=== PATIENT | female | born 2005 | race African-American/Black ===

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

== ENCOUNTER 2024-02-05 14:58 | Emergency (ER) | payer SELFPAY ==
--- OUTSIDE RECORDS SUMMARY | 2024-02-05 15:01 | XMS REPORT | Continuity of Care Document ---
Author Name Unknown Address [address] [place] [address] [facility] Address [address] [place] [address] Care Team Providers Care Encoding Clerk Name Role Phone ALEJA TAYLOR Primary Care Physician Siri KERRI Cabrera Attending Clinician Unavailable UNKNOWN, ATTENDING Attending Clinician Unavailab le [email or web address] Attending Clinician Unavaila cole Leblanc RN, Daily Ohara Attending Clinician Unavailab le Only, Ang Db Test Attending Clinician UnavailGagan Flores Attending Clinician [phone] GAGAN CORTEZ Attending Clinician Unavailable Doctor Unassigned, [place] Attending Clinician U ADILSON Garcia Attending Clinician Unavailable [email or web address] Admitting Clinician Carmitaa cole Payers Payer Name Policy Type Policy Number Effective Date Expirati on Date Source Problems Condition Name Condition Details Condition Category Status Onset Date Resolution Date Last Treatment Date Treating Clinician Comments Source No known active problems No known active problems Disease [facility] Allergies, Adverse Reactions, Alerts Allergy Name Allergy Type Status Severity Reaction(s) Onset Date Inactive Date Treating Clinician Comments Source NO KNOWN ALLERGIE S Drug Class Active [facility] Social History Social Habit Start Date Stop Date Quantity Comments Source History SDOH Alcohol Std Drinks [facility] History SDOH Alcohol Binge [facility] History SDOH Alcohol Comment [facility] Exposure to SARS-CoV-2 (event) Unable to assess [facility] Alcohol intake 2020-04-09 00:00:00 2020-04-09 00:00:00 Lifetime non-drinker (finding) [facility] Tobacco use and exposure 2019-07-12 00:00:00 2019-07-12 00:00:00 Never used [facility] History SDOH Alcohol Frequency 2019-07-12 00:00:00 2019-07-12 00:00:00 1 [facility] Sex Assigned At 2005 00:00:00 2005 00:00:00 [facility] Smoking Status Start Date Stop Date Source Never smoker [facility] Medications Ordered Medication Name Filled Medication Name Start Date Stop Date Current Medication? Ordering Clinician Indication Dosage Frequency Signature (SIG) Comments Components Source lisdexamfet amine (VYVANSE) 40 mg capsule 2019-05 14:18: 21 Yes 40mg Take 40 mg by mouth every morning. [facility] Multivitami ns with Fluoride (MULTI-KOREY MIN ORAL) 2019-05 14:18: 21 Yes 1{tbl} Take 1 tablet by mouth. [facility] Encounters Start Date/Time End Date/Time Encounter Type Admission Type Attending Clinicians Care Facility Care Department Encounter ID Source 2023-09-15 08:30:00 2023-09-15 08:30:00 Outpatient R KERRI BLACK [facility] [id number] [facility] 2023-04-22 17:40:00 2023-04-22 17:40:00 Outpatient R UNKNOWN, ATTENDING [facility] [id number] [facility] 2023-03-24 00:00:00 2023-03-24 00:00:00 Outpatient [email or web address] [facility] [id number] [facility] 2021-05-27 00:00:00 2021-05-27 00:00:00 Letter (Out) Daily Leblanc [facility] [id number] [facility] 2021-05-25 18:15:00 2021-05-25 18:30:00 Laboratory Only Only, Ang Db Test Gagan Cortez [facility] [id number] [facility] 2021-05-25 18:15:00 2021-05-25 18:15:00 Outpatient R GAGAN CORTEZ [facility] [id number] [facility] 2021-05-25 00:00:00 2021-05-25 00:00:00 Letter (Out) Doctor Unassigned, [place] [facility] [id number] [facility] 2020-07-12 15:45:00 2020-07-12 15:45:00 Outpatient R ADILSON MENCHACA [facility] [id number] [facility] 2020-04-09 14:00:00 2020-04-09 14:00:00 Outpatient R [facility] [id number] [facility] 2020-01-10 15:30:00 2020-01-10 15:30:00 Outpatient R [facility] [id number] [facility] 2019-10-12 15:30:00 2019-10-12 15:30:00 Outpatient R [facility] [id number] [facility]
--- NOTE | 2024-02-05 15:26 | ER ---
Nurse's Notes [facility] Name: Cassandra Ruiz Age: 18 yrs Sex: Female : 2005 Arrival Date: 02/05/2024 Time: 14:58 Bed IW1 Private MD: Diagnosis: Abnormal uterine and vaginal bleeding, unspecified Presentation: 02/04 15:17 Chief complaint: Patient states: vaginal bleeding x 2 months ago, pt states "I have aa5 this control in my arm and I want it out because it's now". Coronavirus screen: At this time, the client does not indicate any symptoms associated with coronavirus-19. Ebola Screen: Patient denies travel to an Ebola-affected area in the 21 days before illness onset. Initial Sepsis Screen: Does the patient meet any 2 criteria? HR > 90 bpm. Does the patient have a suspected source of infection? No. Patient's initial sepsis screen is negative. Risk Assessment: Do you want to hurt yourself or someone else? Patient reports no desire to harm self or others. Onset of symptoms was 2023. 15:17 Acuity: BALDO 3 aa5 15:17 Method Of Arrival: Ambulatory aa5 Historical: - Allergies: 15:17 No Known Allergies; aa5 - PMHx: 15:17 adhd; Anemia; aa5 - PSHx: 15:17 umbilical hernia repair; aa5 - Immunization history:: Adult Immunizations unknown. - Infectious Disease History:: Denies. - Social history:: Smoking status: Reported history of juuling and/or vaping. Vital Signs: 15:17 BP 136 / 87; Pulse 111; Resp 18 S; Temp 97.8(TE); Pulse Ox 100% on R/A; Weight 68.04 kg aa5 (R); Height 5 ft. 6 in. (R); 15:17 Body Mass Index 24.21 (68.04 kg, 167.64 cm) - Percentile 73.7 % aa5 ED Course: 15:01 Patient arrived in ED. im 15:17 Bhupendra Ngo MD is Attending Physician. ec2 15:17 Arm band placed on. aa5 15:18 Triage completed. aa5 Administered Medications: No medications were administered Outcome: 15:26 Discharge ordered by . ec2 15:34 Patient left the ED. aa5 Signatures: Karla Herring RN RN aa5 Estee Cheek Edwin, MD MD ec2
--- NOTE | 2024-02-05 15:27 | EDPHYS ---
Physician Documentation [facility] Name: Cassandra Ruiz Age: 18 yrs Sex: Female : 2005 Arrival Date: 02/05/2024 Time: 14:58 Bed IW1 Private MD: ED Physician Bhupendra Ngo HPI: 02/04 15:27 This 18 yrs old Black Female presents to ER via Ambulatory with complaints of Vaginal ec2 Bleeding, implant removal. 15:27 Patient arrives today for evaluation of uterine bleeding. Patient has a left upper ec2 extremity implant in place, states that is approximately 3 months . States that she has been having irregular bleeding for the past 2 months. Patient reports some baseline lightheadedness which is unchanged for her. Denies any new symptoms. Denies difficulty breathing.. Historical: - Allergies: 15:17 No Known Allergies; aa5 - PMHx: 15:17 adhd; Anemia; aa5 - PSHx: 15:17 umbilical hernia repair; aa5 - Immunization history:: Adult Immunizations unknown. - Infectious Disease History:: Denies. - Social history:: Smoking status: Reported history of juuling and/or vaping. ROS: 15:27 Constitutional: as per hpi ec2 Exam: 15:27 Constitutional: GEN: NAD Head: atraumatic Eyes: EOMI Ears: External ears are ec2 normal. CV: Tachycardia LUNGS: no respiratory distress ABD: non-distended SKIN: no evidence of rashes MSK: no evidence of trauma Vital Signs: 15:17 BP 136 / 87; Pulse 111; Resp 18 S; Temp 97.8(TE); Pulse Ox 100% on R/A; Weight 68.04 kg aa5 (R); Height 5 ft. 6 in. (R); 15:17 Body Mass Index 24.21 (68.04 kg, 167.64 cm) - Percentile 73.7 % aa5 MDM: 15:20 Patient medically screened. ec2 15:27 Data reviewed: vital signs. ED course: Patient arrives today for evaluation of ec2 persistent vaginal bleeding along with wanting to have her implant removed. Examination remarkable for slightly tachycardic individual otherwise in no acute distress with reassuring blood pressure. I discussed possibly obtaining lab work regarding her bleeding to evaluate for anemia however patient did not feel this was required at this time. Educated her that I would not be able to remove the implant from her left upper extremity and she needs to follow-up with gynecology. Patient was agreeable and states that she will follow-up outpatient, I provided her community resources follow-up with. Return precautions given.. Administered Medications: No medications were administered Disposition Summary: 02/05/24 15:26 Discharge Ordered Notes: Location: Home ec2 Condition: Stable ec2 Diagnosis - Abnormal uterine and vaginal bleeding, unspecified ec2 Followup: ec2 - With: Private Physician - When: - Reason: Re-evaluation by your physician Discharge Instructions: - Discharge Summary Sheet ec2 - Abnormal Uterine Bleeding, [id number] ec2 Forms: - Medication Reconciliation Form ec2 - Antibiotic Education ec2 - Prescription Opioid Use ec2 - Patient Portal Instructions ec2 - Leadership Thank You Letter ec2 Signatures: Dispatcher [employer] Karla Richey RN RN aa5 Bhupendra Ngo MD MD ec2 Corrections: (The following items were deleted from the chart) 15: 15:18 CBC+H.LAB.BRZ ordered. EDMS EDMS 15:29 15:18 COMPREHENSIVE METABOLIC PANEL+C.LAB.BRZ ordered. EDMS EDMS 15:29 15:18 TEST, SERUM+SC.LAB.BRZ ordered. EDMS EDMS
[2024-02-05 15:38] VITALS: BP 136/87; TEMP 97.8; O2SAT 100
== END 2024-02-05 15:34 | disposition home or self-care (01) ==
LOC: ER 14:58
DX: N93.9 Abnormal uterine and vaginal bleeding, unspecified (principal)
CPT/HCPCS: 99281